=== PATIENT | male | born 1955 | race Caucasian/White ===

== ENCOUNTER 2017-06-25 18:43 | Emergency (ER) | payer BC ==
[~2017-06-25 18:43] MED LIST: AMBIEN10 M1 PO; BACTRIM DS 8001 TA1 PO; BACTROBAN2% TP; CIPRO500 MG PO; CLEOCIN150 MG PO; CLINDAMYCIN300 MG PO; DELTASONE20 MG PO; DOXYCYCLINE MO100 MG PO; DULER200 INH; FLEXERIL10 MG PO; KEFLEX500 MG PO; LEVAQUIN750 MG PO; LEVOFLOXACIN500 MG PO; NEXIUM40 MG PO; PERCOCET 325 MG1 TA7 PO; PREDNICOT10 MG PO; PREDNISONE20 MG PO; PREVACID30 MG PO; PRILOSEC20 M1 PO; PRILOSEC40 M1 PO; PROAIR HFA0.09 MG/AC INH; ROBITUSSIN AC 110 ML PO; TRAMADOL HCL50 MG PO; ULTRAM50 MG PO; VANCOCIN1000 MG/25 IV; VICODIN 500 MG-1 TAB PO; VICODIN ES 7501 TAB PO; ZITHROMAX500 MG PO; ZOCOR40 MG PO; [UNRECOGNIZED DRUG - OTHER] PO; [UNRECOGNIZED DRUG - REMARK]
[2017-06-25] MEDS ORDERED: PREDNISONE10 MG PO (19:01)
[2017-06-25] MEDS ORDERED: 'PARAFON FORTE500 M1 PO (19:01)
== END 2017-06-25 20:13 | disposition home or self-care (01) ==
LOC: ED 18:43
DX: M25.512 Pain in left shoulder (principal); R03.0 Elevated blood-pressure reading, without diagnosis of hypertension; J44.9 Chronic obstructive pulmonary disease, unspecified; Z88.6 Allergy status to analgesic agent; Z79.899 Other long term (current) drug therapy

== ENCOUNTER → 2017-08-02 | Outpatient (CLI) | payer BC ==
[~2017-08-02] MED LIST changes: +'PARAFON FORTE500 M1 PO; +PREDNISONE10 MG PO
== END | disposition home or self-care (01) ==
LOC: MRI 14:50
DX: M54.2 Cervicalgia (principal); M25.78 Osteophyte, vertebrae; R20.0 Anesthesia of skin

== ENCOUNTER 2017-09-15 21:10 | Emergency (ER) | payer BC ==
[~2017-09-15] VITALS: Ht 172.7 cm; Wt 90.7 kg
== END 2017-09-15 21:34 | disposition home or self-care (01) ==
LOC: ED 21:10
DX: Z20.811 Contact with and (suspected) exposure to meningococcus (principal); J44.1 Chronic obstructive pulmonary disease with (acute) exacerbation; F17.200 Nicotine dependence, unspecified, uncomplicated; Z88.8 Allergy status to other drugs, medicaments and biological substances; Z79.899 Other long term (current) drug therapy

== ENCOUNTER 2017-12-11 07:17 | Emergency (ER) | payer BC ==
[~2017-12-11] VITALS: Ht 165.1 cm; Wt 99.8 kg
[2017-12-11] MEDS ORDERED: ULTRAM50 MG PO (07:32)
[2017-12-11] MEDS ORDERED: CYCLOBENZAPRINE5 M3 PO (08:19)
== END 2017-12-11 09:37 | disposition home or self-care (01) ==
LOC: ED 07:17
DX: M54.2 Cervicalgia (principal); M54.89 Other dorsalgia; M79.1 Myalgia; M62.838 Other muscle spasm; J44.1 Chronic obstructive pulmonary disease with (acute) exacerbation; Z88.8 Allergy status to other drugs, medicaments and biological substances; Z79.899 Other long term (current) drug therapy

== ENCOUNTER → 2019-05-09 | Day surgery (SDC) | payer BC ==
[~2019-05-09] VITALS: Ht 165.1 cm; Wt 102.1 kg
[~2019-05-09] MED LIST changes: +CYCLOBENZAPRINE5 M3 PO; +NEURONTIN300 MG PO; +PREVACID30 M2 PO
--- NOTE | ~2019-05-09 | O ---
[place], [place] OPERATIVE NOTE [id number] UNIT #: [id number] ROOM: DOCTOR: HERMELINDA BOYER MD BIRTHDATE: [birth year] DOS: 05/09/2019 GASTROENDOSCOPIC REPORT HISTORY OF PRESENT ILLNESS: The patient is a 64-year-old who has presented with chief complaint of epigastric distress, dyspepsia. The patient with history of concern about colonic polyp. ALLERGIES: IBUPROFEN. FAMILY HISTORY: Noncontributory. PAST SURGICAL HISTORY: Bilateral knee, carpal tunnel and elbow. PAST MEDICAL HISTORY: Hypercholesterolemia, reflux. SOCIAL HISTORY: Nonsmoker, nonalcohol consumer. PROCEDURE: Today's procedure part of investigation is panendoscopy and colonoscopy. PREMEDICATION: propofol. SCOPE: Olympus forward-viewing gastroscope Q10 video. REPORT: After putting the patient in left lateral position and application of lubricant to the scope, the scope was introduced. Thereafter, under direct visualization, I advanced through the length of esophagus without difficulty. Gastritis noticed. Hiatal hernia of 3 cm was noticed. Duodenal bulb, second and third part within normal limits. Antral biopsy obtained. The patient was gradually extubated and tolerated the procedure well. IMPRESSION: Hiatal hernia, gastritis, status post biopsy. PLAN: Continuation with Prevacid 30 mg daily. Elevation of the head of bed 6 inch all time. Furthermore, we are going to proceed with colonoscopic evaluation. [place], [place] OPERATIVE NOTE NAME: [facility]: [id number] UNIT #: [id number] ROOM: DOCTOR: HERMELINDA BOYER MD BIRTHDATE: [birth year] HERMELINDA BOYER MD CM:OPRECORD:OPERATIVE NOTE 1000 1304 HERMELINDA BOYER MD 05/09/19 1302 interface
--- NOTE | ~2019-05-09 | O ---
[place], [place] OPERATIVE NOTE [id number] UNIT #: [id number] ROOM: DOCTOR: MERLIN SCHMID,EHRMELINDA BIRTHDATE: [birth year] DOS: 05/09/2019 GASTROENDOSCOPIC REPORT INDICATIONS: The patient has presented with colonic screening and remote history of polyp. PROCEDURE: Today's procedure part of investigation is colonoscopy. PREMEDICATION: Propofol. SCOPE: Olympus forward-viewing colonoscope 10L video. REPORT: After putting the patient in left lateral position and application of lubricant to the scope, the scope was introduced. Thereafter, under direct visualization, I advanced through the length of the colon without difficulty. Base of the cecum explored, appendiceal orifice identified, ileocecal valve was defined. Scope was gradually withdrawn from ascending, transverse, descending colon. The patient extubated, tolerated the procedure well. IMPRESSION: Normal colonoscopic examination. PLAN AND DISCUSSION: High fiber diet. Activity ad cesar. Follow up as outpatient. Follow-up colonoscopy in 10 years unless there are symptoms in which case follow-up should be as needed. HERMELINDA BOYER MD CM:OPRECORD:OPERATIVE NOTE 1000 1305 HERMELINDA BOYER MD 05/14/19 0917 interface
[2019-05-09 08:50] VITALS: BP 152/65
[2019-05-09 09:55] VITALS: BP 135/78
[2019-05-09 10:10] VITALS: BP 131/81
[2019-05-09 10:25] VITALS: BP 118/70
== END | disposition home or self-care (01) ==
LOC: SDC 05-07 14:00
DX: Z12.11 Encounter for screening for malignant neoplasm of colon (principal); K29.50 Unspecified chronic gastritis without bleeding; K44.9 Diaphragmatic hernia without obstruction or gangrene; K21.9 Gastro-esophageal reflux disease without esophagitis; E78.00 Pure hypercholesterolemia, unspecified; J45.909 Unspecified asthma, uncomplicated; E78.5 Hyperlipidemia, unspecified; M19.90 Unspecified osteoarthritis, unspecified site; E66.9 Obesity, unspecified; Z88.8 Allergy status to other drugs, medicaments and biological substances; Z86.010 Personal history of colon polyps; Z96.653 Presence of artificial knee joint, bilateral; Z98.890 Other specified postprocedural states; Z79.899 Other long term (current) drug therapy; Z68.37 Body mass index [BMI] 37.0-37.9, adult; Z82.3 Family history of stroke

== ENCOUNTER 2020-09-05 18:20 | Emergency (ER) | payer BC ==
[~2020-09-05] VITALS: Ht 162.5 cm; Wt 96.2 kg
[2020-09-05] MEDS ORDERED: PREDNISONE20 M1 PO (21:36)
[2020-09-05] MEDS ORDERED: Orphenadrine C100 MG PO (21:36)
== END 2020-09-05 22:10 | disposition home or self-care (01) ==
LOC: ED 18:20
DX: G58.8 Other specified mononeuropathies (principal); M62.838 Other muscle spasm

== ENCOUNTER 2022-02-04 09:14 | Emergency (ER) | payer BC ==
[~2022-02-04] VITALS: Wt 99.8 kg
[~2022-02-04 09:14] MED LIST changes: +Orphenadrine C100 MG PO; +PREDNISONE20 M1 PO
[2022-02-04 10:05] LABS: BASO # 0.1 10*3/uL (0.0-0.1); EOS # 0.6 10*3/uL (0.0-0.4); EOS % 7.7 % (1.0-4.0); HEMATOCRIT 49.8 % (42.0-52.0); LYMPH # 1.5 10*3/uL (1.3-4.4); LYMPH % 19.2 % (27.0-41.0); MEAN CELL VOLUME 81.4 fl (80.0-94.0); MEAN CORPUSCULAR HGB 25.8 pg (27.0-31.0); MEAN CORPUSCULAR HGB CONC 31.7 g/dl (33.0-37.0); MEAN PLATELET VOLUME 9.2 fl (9.6-12.3); MONO % 12.5 % (3.0-9.0); NEUT # 4.8 10*3/uL (2.3-7.9); NEUT % 59.1 % (47.0-73.0); PLATELET COUNT AUTOMATED 207 10*3/uL (130-400); RED BLOOD COUNT 6.12 10*6/uL (4.50-5.90); RED CELL DISTRI WIDTH 14.1 % (0-14.5)
[2022-02-04 10:26] LABS: ALKALINE PHOSPHATASE 65 U/L (45-117); BUN 19 mg/dl (7-24); CHLORIDE 104 mmol/L (98-107); CREATININE 1.06 mg/dL (0.70-1.30); LIPASE 65 U/L (73-393); POTASSIUM 4.6 mmol/L (3.5-5.1); SGOT/AST 19 IU/L (3-35); SGPT/ALT 30 U/L (12-78); SODIUM 139 mmol/L (136-145); TOTAL PROTEIN 6.8 gm/dL (6.4-8.2)
[2022-02-04] MEDS ORDERED: Orphenadrine C100 MG PO (11:13)
== END 2022-02-04 11:18 | disposition home or self-care (01) ==
LOC: ED 09:14
PROVIDERS: Internal Medicine
DX: M62.830 Muscle spasm of back (principal); R05.9 Cough, unspecified; Z88.6 Allergy status to analgesic agent; Z79.899 Other long term (current) drug therapy; Z98.890 Other specified postprocedural states

== ENCOUNTER → 2023-03-21 | Outpatient (CLI) | payer BC | END | disposition home or self-care (01) | LOC: RAD 11:05 | PROVIDERS: ATTEND Internal Medicine | DX: J18.9 Pneumonia, unspecified organism (principal); J45.20 Mild intermittent asthma, uncomplicated ==

== ENCOUNTER → 2023-03-31 | Outpatient (CLI) | payer BC | END | disposition home or self-care (01) | LOC: LAB 00:15 → CT 10:00 → LAB 10:00 | PROVIDERS: ATTEND Internal Medicine | DX: Z01.818 Encounter for other preprocedural examination (principal); I25.10 Atherosclerotic heart disease of native coronary artery without angina pectoris; K76.0 Fatty (change of) liver, not elsewhere classified; M25.78 Osteophyte, vertebrae; K44.9 Diaphragmatic hernia without obstruction or gangrene ==

== ENCOUNTER 2024-02-11 12:07 | Emergency (ER) | payer BC ==
[~2024-02-11] VITALS: Ht 162.5 cm; Wt 95.3 kg
[2024-02-11] MEDS ORDERED: TRULICITY4.5 MG/0.5 SQ (12:19)
[2024-02-11] MEDS ORDERED: ASPIRIN ADULT L81 M1 PO (12:19)
[2024-02-11] MEDS ORDERED: METFORMIN HYD1000 MG PO (12:21)
[2024-02-11] MEDS ORDERED: ACETAMINOPHEN 325 MG TAB PO ONE (12:55)
[2024-02-11 13:04] LABS: BASO # 0.1 10*3/uL (0.0-0.1); BASO % 0.7 % (0.0-1.0); EOS # 0.8 10*3/uL (0.0-0.4); EOS % 7.2 % (1.0-4.0); LYMPH # 2.1 10*3/uL (1.3-4.4); LYMPH % 17.7 % (27.0-41.0); MEAN CELL VOLUME 82.4 fl (80.0-94.0); MEAN CORPUSCULAR HGB 25.9 pg (27.0-31.0); MEAN CORPUSCULAR HGB CONC 31.4 g/dl (33.0-37.0); MEAN PLATELET VOLUME 8.7 fl (9.6-12.3); MONO # 1.3 10*3/uL (0.1-1.0); MONO % 10.9 % (3.0-9.0); NEUT # 7.4 10*3/uL (2.3-7.9); NEUT % 63.3 % (47.0-73.0); PLATELET COUNT AUTOMATED 200 10*3/uL (130-400); RED CELL DISTRI WIDTH 14.1 % (0-14.5); WHITE BLOOD COUNT 11.6 10*3/uL (4.8-10.8)
[2024-02-11 13:19] LABS: BUN 9 mg/dl (9-23); CHLORIDE 103 mmol/L (98-107); POTASSIUM 3.7 mmol/L (3.4-5.1)
[2024-02-11] MEDS ORDERED: VIBRAMYCIN100 MG PO (15:02)
== END 2024-02-11 15:11 | disposition home or self-care (01) ==
LOC: ED 12:07
PROVIDERS: Nurse Practitioner
DX: L02.811 Cutaneous abscess of head [any part, except face] (principal); J45.909 Unspecified asthma, uncomplicated; K21.9 Gastro-esophageal reflux disease without esophagitis; E78.00 Pure hypercholesterolemia, unspecified; Z88.6 Allergy status to analgesic agent; Z98.890 Other specified postprocedural states; Z96.653 Presence of artificial knee joint, bilateral

== ENCOUNTER → 2024-02-14 | Day surgery (SDC) | payer BC ==
[~2024-02-14] MED LIST changes: +ASPIRIN ADULT L81 M1 PO; +BUPIVACAINE 0.5% 10 ML VIAL ONE; +METFORMIN HYD1000 MG PO; +TRULICITY4.5 MG/0.5 SQ; +VIBRAMYCIN100 MG PO
[2024-02-14 13:31] VITALS: BP 152/83
[2024-02-14 14:05] VITALS: BP 157/88
[2024-02-14 14:15] VITALS: BP 157/92
[2024-02-14 14:25] VITALS: BP 156/84
[2024-02-14 14:32] VITALS: BP 158/80
== END | disposition home or self-care (01) ==
LOC: SDC 11:39
PROVIDERS: ATTEND Surgery
DX: L73.9 Follicular disorder, unspecified (principal); L02.11 Cutaneous abscess of neck; L66.2 Folliculitis decalvans; J45.909 Unspecified asthma, uncomplicated; E11.39 Type 2 diabetes mellitus with other diabetic ophthalmic complication; H42 Glaucoma in diseases classified elsewhere; K21.9 Gastro-esophageal reflux disease without esophagitis; Z96.651 Presence of right artificial knee joint; Z96.652 Presence of left artificial knee joint; Z98.890 Other specified postprocedural states; Z79.82 Long term (current) use of aspirin; Z79.84 Long term (current) use of oral hypoglycemic drugs; Z79.899 Other long term (current) drug therapy; Z82.49 Family history of ischemic heart disease and other diseases of the circulatory system

== ENCOUNTER 2024-02-15 19:44 | Emergency (ER) | payer BC ==
[~2024-02-15] VITALS: Ht 152.4 cm; Wt 95.3 kg
[~2024-02-15 19:44] MED LIST changes: -BUPIVACAINE 0.5% 10 ML VIAL ONE
== END 2024-02-15 20:02 | disposition home or self-care (01) ==
LOC: ED 19:44
DX: Z48.01 Encounter for change or removal of surgical wound dressing (principal); L02.11 Cutaneous abscess of neck; I10 Essential (primary) hypertension; J44.9 Chronic obstructive pulmonary disease, unspecified; Z88.6 Allergy status to analgesic agent; Z79.82 Long term (current) use of aspirin; Z79.899 Other long term (current) drug therapy

== ENCOUNTER → 2024-03-16 | Outpatient (CLI) | payer BC | END | disposition home or self-care (01) | LOC: ORTHO 03:10 | PROVIDERS: ATTEND Orthopaedic Surgery | DX: M19.022 Primary osteoarthritis, left elbow (principal); M19.021 Primary osteoarthritis, right elbow ==

== ENCOUNTER 2024-09-16 09:04 | Emergency (ER) | payer BC ==
[~2024-09-16] VITALS: Ht 165.1 cm; Wt 95.3 kg
[2024-09-16] MEDS ORDERED: MOUNJARO2.5 MG/0.1 SQ (09:49)
[2024-09-16] MEDS ORDERED: SEPTDS PO (10:37)
[2024-09-16] MEDS ORDERED: Sulfamethoxazole/Trimethopri 1 TAB TAB PO ONE (10:40)
== END 2024-09-16 10:51 | disposition home or self-care (01) ==
LOC: ED 09:04
DX: L03.114 Cellulitis of left upper limb (principal); J45.909 Unspecified asthma, uncomplicated; K21.9 Gastro-esophageal reflux disease without esophagitis; E78.00 Pure hypercholesterolemia, unspecified; Z88.6 Allergy status to analgesic agent; Z96.653 Presence of artificial knee joint, bilateral; Z98.890 Other specified postprocedural states

== ENCOUNTER → 2025-01-04 | Outpatient (CLI) | payer BC ==
[~2025-01-04] MED LIST changes: +MOUNJARO2.5 MG/0.1 SQ; +SEPTDS PO
== END | disposition home or self-care (01) ==
LOC: LAB 17:05
PROVIDERS: ATTEND Internal Medicine
DX: Z12.5 Encounter for screening for malignant neoplasm of prostate (principal); E11.9 Type 2 diabetes mellitus without complications

== ENCOUNTER 2025-03-11 17:50 | Emergency (ER) | payer BC ==
[~2025-03-11] VITALS: Ht 165.1 cm; Wt 84.4 kg
== END 2025-03-11 21:27 | disposition home or self-care (01) ==
LOC: ED 17:50
DX: S96.911A Strain of unspecified muscle and tendon at ankle and foot level, right foot, initial encounter (principal); Z88.2 Allergy status to sulfonamides; Z79.899 Other long term (current) drug therapy; Z79.82 Long term (current) use of aspirin; Z98.890 Other specified postprocedural states; X50.0XXA Overexertion from strenuous movement or load, initial encounter; Y93.89 Activity, other specified; Y92.89 Other specified places as the place of occurrence of the external cause; Y99.8 Other external cause status

== ENCOUNTER 2025-03-17 14:38 | Emergency (ER) | payer BC ==
[2025-03-17] MEDS ORDERED: AMOX-CLAV 875-1 EACH PO (15:11)
[2025-03-17] MEDS ORDERED: Amoxicillin/Clavulanate Pota 875 MG TAB PO ONE (15:15)
== END 2025-03-17 15:30 | disposition home or self-care (01) ==
LOC: ED 14:38
DX: J32.0 Chronic maxillary sinusitis (principal); J32.2 Chronic ethmoidal sinusitis; Z88.6 Allergy status to analgesic agent; Z79.82 Long term (current) use of aspirin; Z79.84 Long term (current) use of oral hypoglycemic drugs; Z79.899 Other long term (current) drug therapy; Z98.890 Other specified postprocedural states

== ENCOUNTER 2025-06-19 00:11 | Emergency (ER) | payer BC ==
[~2025-06-19 00:11] MED LIST changes: +AMOX-CLAV 875-1 EACH PO
[2025-06-19] MEDS ORDERED: Gelatin Sponge 1 EACH SPON T ONE (00:30)
== END 2025-06-19 00:43 | disposition home or self-care (01) ==
LOC: ED 00:11
DX: L76.22 Postprocedural hemorrhage of skin and subcutaneous tissue following other procedure (principal); J45.909 Unspecified asthma, uncomplicated; K21.9 Gastro-esophageal reflux disease without esophagitis; E78.00 Pure hypercholesterolemia, unspecified; Z98.890 Other specified postprocedural states